=== PATIENT | male | born 1960 | race African-American/Black ===

== ENCOUNTER 2023-12-10 13:06 | Outpatient (AMB) | payer BC, SELFPAY ==
--- NOTE | 2023-12-10 13:14 | A.OFFPC_ITS ---
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 Accompanied by: Self / Same As Patient Allergies No Known Allergies Allergy (Verified 12/10/23 13:19) Tobacco use date assessed: 12/10/23 Dental Screening Did you have a dental visit in the last 12 months?: Yes Did you have a dental problem in the last 6 months where you did not have access to dental care?: No Was dental information given to patient?: Patient has dentist HPI HPI Comments History of Present Illness Details The patient a 63 year old male with a significant past medical history of back pain, polyarthralgia, diabetes, hypertension, TRAVIS presenting for follow up DM: On actos 30 daily, ozempic. fasting blood glucose 90-110 Previously intolerant to metformin CV: on losartan 100 mg daily. Denies any chest pain, shortness of breath, palpitations Musculoskeletal: +RF. Pending rheumatology consult. Neck and hand pain with improvement following glucose regulation. Right knee pain. Had ultrasound lower leg swelling-showed ruptured bakers cyst TRAVIS: needs sleep referral for management Believes last colonoscopy was 3 years ago at most. Says this was normal ROS CONSTITUTIONAL: Denies weight loss, fever and chills. HEENT: Denies changes in vision and hearing. RESPIRATORY: Denies SOB and cough. CV: Denies palpitations and CP GI: Denies abdominal pain, nausea, vomiting and diarrhea. : Denies dysuria and urinary frequency. MSK: Denies new myalgia and joint pain. SKIN: Denies rash and pruritus. NEUROLOGICAL: Denies headache PSYCHIATRIC: Denies recent changes in mood. PHYSICAL EXAM: GENERAL: Alert and oriented x 3. NAD EYES: EOMI. Anicteric. HENT: Moist mucous membranes. No scleral icterus. No cervical lymphadenopathy. LUNGS: Clear to auscultation bilaterally. CARDIOVASCULAR: Regular rate and rhythm. No murmur. No JVD. ABDOMEN: Soft, non-tender +bs EXTREMITIES: No edema. Non-tender. SKIN: No rashes or lesions. Warm. NEUROLOGIC: No focal neurological deficits. CN II-XII grossly intact PSYCHIATRIC: Cooperative. Appropriate mood and affect [facility] Social History (Updated 12/10/23 @ 13:24 by Rosina Vines [facility]) Household Members: None Housing: House 75 years or older and lives alone: No Patient Tobacco Use Status: Never used Tobacco e-Cigarette/Vaping Use: Never Used service: Yes Current occupational status: employed Current occupation: [employer] Cognitive needs: No Hearing needs: No Vision needs: No Questionnaire PHQ-9 Over the last 2 weeks, how often have you been bothered by any of the following problems? 1. Little interest or pleasure in doing things: not at all 2. Feeling down, depressed, or hopeless: several days 3. Trouble falling or staying asleep, or sleeping too much: not at all 4. Feeling tired or having little energy: not at all 5. Poor appetite or overeating: not at all 6. Feeling bad about yourself - or that you are a failure or have let yourself or your family down: not at all 7. Trouble concentrating on things, such as reading the newspaper or watching television: not at all 8. Moving or speaking so slowly that other people could have noticed. Or the opposite - being so fidgety or restless that you have been moving around a lot more than usual: not at all 9. Thoughts that you would be better off or of hurting yourself in some way: not at all Total score: 1 Depression Screening Interpretation: Negative Depression Screening Done: Yes 08916 - PHQ-9 Billing: Yes Source: Developed by Drs. Herson Rutledge, Leanna Valencia, Modesto Frederick and colleagues, with an educational jayesh from [employer]. Thrive Questionnaire Date Thrive assessed: 12/10/23 I am a: Patient What is your living situation today?: I have a steady place to live Within the past 12 months, did the food you bought not last and you didn't have the money to get more?: Never true Within the past 12 months, did you worry whether your food would run out before you got money to buy more?: Never true Do you have trouble paying for medicines?: No Do you have trouble getting transportation to medical appointments?: No Do you have trouble paying your heating and electricity bill?: No Do you have trouble taking care of your child, family member or friend?: No Do you have trouble with day-to-day activities such as bathing, preparing meals, shopping, managing finances, etc.?: No Are you currently unemployed and looking for a job?: No Are you interested in more education?: No Please select the resources that you would like help with: None Currently or been in a relationship where the following occur: No concerns reported THRIVE Score: 0 AUDIT C Alcohol Use Questionnaire (AUDIT-C) 1. How often do you have a drink containing alcohol?: Never 3. How often do you have six or more drinks on one occasion?: Never Total Score: 0 MARC-7 AMB Questionnaire MARC-7 Date MARC - 7 assessed: 12/10/23 Feeling nervous, anxious, or on edge: 1 = Several days Not being able to stop or control worryin = Not at all Worrying too much about different things: 1 = Several days Trouble relaxin = Not at all Being so restless that it is hard to sit still: 0 = Not at all Becoming easily annoyed or irritable: 1 = Several days Feeling afraid as if something awful might happen: 0 = Not at all Total MARC-7 score (0-4 normal; 5-9 mild; 10-14 moderate; 15-21 severe): 3 Source: Developed by Drs. Herson Rutledge, Leanna Valencia, Modesto Frederick and colleagues, with an educational jayesh from [employer]. MARC-7 Assessment Billing MARC-7 Assessment Tool: MARC-7 Assessment 76951 Physical exam (Primary Care) Vital Signs: Last Vital Signs Pulse 76 12/10/23 13:16 Resp 13 12/10/23 13:16 BP 122/66 12/10/23 13:16 Pulse Ox 99 12/10/23 13:16 Oxygen Delivery Method Room Air 12/10/23 13:16 BMI result Body Mass Index 33.2 Tobacco/Smoking Status: Tobacco use Status Tobacco use date assessed 12/10/23 12/10/23 13:23 Patient Tobacco Use Status Never used Tobacco 12/10/23 13:24 e-Cigarette/Vaping Use Never Used 12/10/23 13:24 PHQ-9: PHQ-9 Score PHQ-9: Total score 1 12/15/23 11:07 Depression Screening Interpretation: Negative Thrive Assessment: Date of Thrive Assessment Date Thrive assessed 12/10/23 12/10/23 13:26 Currently or been in a relationship where the following occur: No concerns reported Assessment and Plan Assessment & Plan (1) Diabetes mellitus: Code(s): E11.9 - Type 2 diabetes mellitus without complications Qualifiers: Diabetes mellitus complication status: with other specified complication Diabetes mellitus intermodal dispatcher insulin use: without snf use Diabetes mellitus type: type 2 Qualified Code(s): E11.69 - Type 2 diabetes mellitus with other specified complication Plan: Check lab. continue routine follow up. annual eye exam (2) Hypertension: Code(s): I10 - Essential (primary) hypertension Qualifiers: Hypertension type: primary hypertension Qualified Code(s): I10 - Essential (primary) hypertension (3) History of DVT (deep vein thrombosis): Code(s): Z86.718 - Personal history of other venous thrombosis and embolism (4) Sleep apnea: Code(s): G47.30 - Sleep apnea, unspecified Qualifiers: Sleep apnea type: obstructive Qualified Code(s): G47.33 - Obstructive sleep apnea (adult) (pediatric) Orders: Orders Comprehensive Met. Panel 3 Months - Type 2 diabetes mellitus with other specified complication, I10 - Essential (primary) hypertension, Z86.718 - Personal history of other venous thrombosis and embolism Lipid Panel 3 Months - Type 2 diabetes mellitus with other specified complication, I10 - Essential (primary) hypertension, Z86.718 - Personal history of other venous thrombosis and embolism RT home sleep study 12/10/23 G47.30 - Sleep apnea, unspecified AMB Hemoglobin (HGB) 12/10/23 - Type 2 diabetes mellitus with other specified complication, Z13.9 - Encounter for screening, unspecified Complete Blood Count Auto Diff 3 Months - Type 2 diabetes mellitus with other specified complication, I10 - Essential (primary) hypertension, Z86.718 - Personal history of other venous thrombosis and embolism Hemoglobin A1c 3 Months - Type 2 diabetes mellitus with other specified complication, I10 - Essential (primary) hypertension, Z86.718 - Personal history of other venous thrombosis and embolism Referrals Sleep Medicine Referral G47.30 - Sleep apnea, unspecified Coding Level of Care Code Est Pt Level 5 (46200) Diagnoses Type 2 diabetes mellitus with other specified complication, without long-term current use of insulin E11.69 Diabetes mellitus complication status: with other specified complication Diabetes mellitus intermodal dispatcher insulin use: without snf use Diabetes mellitus type: type 2 Primary hypertension I10 Hypertension type: primary hypertension History of DVT (deep vein thrombosis) Z86.718 Obstructive sleep apnea syndrome G47.33 Sleep apnea type: obstructive Additional Codes MARC-7 Assessment Billing - MARC-7 Assessment Tool: MARC-7 Assessment 51101 ([id number])
[2023-12-10 13:16] VITALS: BP 122/66; PULSE 76; RESP 13; O2SAT 99; BMI 33.2
== END 2023-12-10 14:04 | disposition home or self-care (01) ==
PROVIDERS: PCP Internal Medicine; Visit Provider Internal Medicine
DX: E11.69 Type 2 diabetes mellitus with other specified complication (principal); I10 Essential (primary) hypertension; Z86.718 Personal history of other venous thrombosis and embolism; G47.33 Obstructive sleep apnea (adult) (pediatric)
CPT/HCPCS: 83036; 99214

== ENCOUNTER → 2023-12-27 14:29 | Outpatient (BNVA) | payer SELFPAY | PROVIDERS: PCP Internal Medicine; Visit Provider Physician Assistant | DX: Z02.79 Encounter for issue of other medical certificate (principal) ==

== ENCOUNTER → 2024-04-10 12:57 | Outpatient (BNVA) | payer SELFPAY | PROVIDERS: PCP Internal Medicine; Visit Provider Registered Nurse | DX: Z02.79 Encounter for issue of other medical certificate (principal) ==

== ENCOUNTER 2024-04-28 11:01 | Outpatient (AMB) | payer BC, SELFPAY ==
--- NOTE | 2024-04-28 11:19 | MHC.PC.OV ---
Vital Signs 04/28/24 11:21 Height 5 ft 11 in Weight 246 lb BMI 34.3 BP 110/76 Blood Pressure Location Rt brachial Position Sitting Pulse 75 Pulse Source Pulse Oximeter Pulse Oximetry (%) 97 Oxygen Delivery Method Room Air Intake Visit Reasons: Rsched from 04/21 DM Follow Up Intake Note: Follow up diabetes. Did not get lab work done. Story Reader Required: No Allergies No Known Allergies Allergy (Verified 04/28/24 11:20) Tobacco use date assessed: 04/28/24 HPI HPI Comments History of Present Illness Details The patient a 63 year old male with a significant past medical history of back pain, polyarthralgia, diabetes, hypertension, TRAVIS presenting for follow up DM: On actos 30 daily, ozempic. A1C today 5.7%. fasting blood glucose 90-110 Previously intolerant to metformin. Has some mild neuropathy in bilateral feet. Has been having left proximal heel pad pain, especially in the morning. CV: on losartan 100 mg daily. Denies any chest pain, shortness of breath, palpitations Musculoskeletal: +RF. Believes he went to rheumatology thereafter. Neck and hand pain with improvement following glucose regulation. Right knee pain. Had ultrasound lower leg swelling-showed ruptured bakers cyst Believes last colonoscopy was 3 years ago at most. Says this was normal ROS see HPI PHYSICAL EXAM: GENERAL: Alert and oriented x 3. NAD EYES: EOMI. Anicteric. HENT: Moist mucous membranes. No scleral icterus. No cervical lymphadenopathy. LUNGS: Clear to auscultation bilaterally. CARDIOVASCULAR: Regular rate and rhythm. No murmur. No JVD. ABDOMEN: Soft, non-tender +bs EXTREMITIES: No edema. Non-tender. SKIN: No rashes or lesions. Warm. NEUROLOGIC: No focal neurological deficits. CN II-XII grossly intact PSYCHIATRIC: Cooperative. Appropriate mood and affect [facility] Social History (Updated 12/10/23 @ 13:24 by Rosina Vines [facility]) Household Members: None Housing: House 75 years or older and lives alone: No Patient Tobacco Use Status: Never used Tobacco e-Cigarette/Vaping Use: Never Used service: Yes Current occupational status: employed Current occupation: [employer] Cognitive needs: No Hearing needs: No Vision needs: No Questionnaire PHQ-9 Over the last 2 weeks, how often have you been bothered by any of the following problems? 1. Little interest or pleasure in doing things: not at all 2. Feeling down, depressed, or hopeless: not at all 3. Trouble falling or staying asleep, or sleeping too much: not at all 4. Feeling tired or having little energy: not at all 5. Poor appetite or overeating: not at all 6. Feeling bad about yourself - or that you are a failure or have let yourself or your family down: not at all 7. Trouble concentrating on things, such as reading the newspaper or watching television: not at all 8. Moving or speaking so slowly that other people could have noticed. Or the opposite - being so fidgety or restless that you have been moving around a lot more than usual: not at all 9. Thoughts that you would be better off or of hurting yourself in some way: not at all Total score: 0 Depression Screening Interpretation: Negative Depression Screening Done: Yes 55929 - PHQ-9 Billing: Yes Source: Developed by Drs. Herson Rutledge, Leanna Valencia, Modesto Frederick and colleagues, with an educational jayesh from [employer]. Thrive Questionnaire Date Thrive assessed: 04/14/24 I am a: Patient What is your living situation today?: I have a steady place to live Within the past 12 months, did the food you bought not last and you didn't have the money to get more?: Never true Within the past 12 months, did you worry whether your food would run out before you got money to buy more?: Never true Do you have trouble paying for medicines?: No Do you have trouble getting transportation to medical appointments?: No Do you have trouble paying your heating and electricity bill?: No Do you have trouble taking care of your child, family member or friend?: No Do you have trouble with day-to-day activities such as bathing, preparing meals, shopping, managing finances, etc.?: No Are you currently unemployed and looking for a job?: No Are you interested in more education?: No Please select the resources that you would like help with: None Currently or been in a relationship where the following occur: No concerns reported THRIVE Score: 0 MARC-7 AMB Questionnaire MARC-7 Date MARC - 7 assessed: 12/10/23 Source: Developed by Drs. Herson Rutledge, Leanna Valencia, Modesto Frederick and colleagues, with an educational jayesh from [employer]. Physical exam (Primary Care) Vital Signs: Last Vital Signs Pulse 75 04/28/24 11:21 BP 110/76 04/28/24 11:21 Pulse Ox 97 04/28/24 11:21 Oxygen Delivery Method Room Air 04/28/24 11:21 BMI result Body Mass Index 34.3 Tobacco/Smoking Status: Tobacco use Status Tobacco use date assessed 04/28/24 04/28/24 11:21 Patient Tobacco Use Status Never used Tobacco 04/28/24 11:21 e-Cigarette/Vaping Use Never Used 04/28/24 11:21 PHQ-9: PHQ-9 Score PHQ-9: Total score 0 04/28/24 11:21 Depression Screening Interpretation: Negative Thrive Assessment: Date of Thrive Assessment Date Thrive assessed 04/14/24 04/28/24 11:21 Currently or been in a relationship where the following occur: No concerns reported Coding Level of Care Code Est Pt Level 4 (17238) Diagnoses Type 2 diabetes mellitus with other specified complication, without long-term current use of insulin E11.69 Diabetes mellitus type: type 2 Diabetes mellitus senior living insulin use: without terminal supervisor use Diabetes mellitus complication status: with other specified complication Primary hypertension I10 Hypertension type: primary hypertension Pain of left heel M79.672 Additional Codes PHQ-9 - 70874 - PHQ-9 Billing: Yes ([id number]) Assessment & Plan Assessment & Plan (1) Diabetes mellitus: Code(s): E11.9 - Type 2 diabetes mellitus without complications Category: Medical Qualifiers: Diabetes mellitus type: type 2 Diabetes mellitus senior living insulin use: without senior living use Diabetes mellitus complication status: with other specified complication Qualified Code(s): E11.69 - Type 2 diabetes mellitus with other specified complication Plan: well controlled on current regimen Annual eye exams (2) Hypertension: Code(s): I10 - Essential (primary) hypertension Category: Medical Qualifiers: Hypertension type: primary hypertension Qualified Code(s): I10 - Essential (primary) hypertension Plan: controlled on current medication (3) Pain of left heel: Code(s): M79.672 - Pain in left foot Category: Medical Plan: Mild/mod at present. Discussed possible achilles tendinitis, arthritis or bone spurring. declines imaging and referral at present. He will trial voltaren cream Orders: Orders AMB Hemoglobin A1c Today E11.69 - Type 2 diabetes mellitus with other specified complication Medications: New diclofenac sodium 1% apply to single knee, ankle, foot; for foot includes sole/toes/top of foot 4 grams topical QID 100 grams 3RF
[2024-04-28 11:21] VITALS: BP 110/76; PULSE 75; O2SAT 97; BMI 34.3
== END 2024-04-28 11:46 | disposition home or self-care (01) ==
PROVIDERS: PCP Internal Medicine; Visit Provider Internal Medicine
DX: E11.69 Type 2 diabetes mellitus with other specified complication (principal); I10 Essential (primary) hypertension; M79.672 Pain in left foot

== ENCOUNTER → 2024-04-28 11:01 | Outpatient (BNVA) | payer BC, SELFPAY | PROVIDERS: PCP Internal Medicine; Visit Provider Internal Medicine | DX: E11.69 Type 2 diabetes mellitus with other specified complication (principal); I10 Essential (primary) hypertension; M79.672 Pain in left foot | CPT/HCPCS: 96127 ==

== ENCOUNTER 2024-11-10 12:52 | Outpatient (AMB) | payer OTHER, SELFPAY ==
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
[2024-11-10 13:26] VITALS: BP 116/64; PULSE 104; RESP 16; O2SAT 98; BMI 36.3
== END 2024-11-10 13:37 | disposition home or self-care (01) ==
PROVIDERS: PCP Internal Medicine; Visit Provider Internal Medicine
DX: S39.012D Strain of muscle, fascia and tendon of lower back, subsequent encounter (principal); V89.2XXD Person injured in unspecified motor-vehicle accident, traffic, subsequent encounter; E11.69 Type 2 diabetes mellitus with other specified complication

== ENCOUNTER 2024-11-10 13:49 | Outpatient (REF) | payer OTHER, SELFPAY ==
[2024-11-10 18:31] LABS: MANUAL DIFF FLAG NO
[2024-11-10 18:45] LABS: Basophils Percent Auto 0.6 % (0-2); Eosinophils Percent Auto 0.6 % (0-4); Hematocrit 44.8 % (42.0-52.0); Hemoglobin 14.5 g/dl (14.0-18.0); Imm Gran Abs Auto 0.01 X10*3/uL (0.00-0.03); Imm Gran Pct Auto 0.2 % (0.0-0.4); Lymphocytes Absolute Auto 0.9 X10*3/uL (1.2-4.9); Lymphocytes Percent Auto 17.3 % (20-40); Mean Corpuscular HGB Conc 32.4 g/dl (31.0-36.0); Mean Corpuscular Volume 92.8 fL (80.0-98.0); Mean Platelet Volume 11.6 fL (9.4-12.4); Monocytes Absolute Auto 0.4 X10*3/uL (0.1-1.2); Monocytes Percent Auto 7.2 % (2-11); Neutrophils Percent Auto 74.1 % (45-73); Platelet Count 202 X10*3/uL (160-400); Red Blood Count 4.83 X10*6/uL (4.60-5.80); Red Cell Distribution Width 13.2 % (11.0-16.0); White Blood Count 5.4 X10*3/uL (4.8-10.8)
[2024-11-10 18:52] LABS: Alanine Aminotransferase 26 U/L (0-40); Albumin Level 4.3 g/dL (3.5-5.0); Alkaline Phosphatase 80 U/L (39-117); Anion Gap 11 (12-20); Aspartate Amino Transferase 25 U/L (5-37); Bilirubin Total 0.5 mg/dL (0.0-1.0); Blood Urea Nitrogen 14 mg/dL (9-16); Calcium 9.4 mg/dL (8.4-10.2); Carbon Dioxide 27 mmol/L (22-29); Chloride 106 mmol/L (96-108); Cholesterol 183 mg/dL (<200); Estimated Glomerular Filt Rate > 60; Glucose Random 139 mg/dL (60-115); HDL Cholesterol 44 mg/dL (>40); LDL Cholesterol Calculated 110 mg/dL (<100); Potassium 4.2 mmol/L (3.3-5.1); Sodium 140 mmol/L (135-145); Total Protein 7.6 g/dL (6.5-8.0); Triglycerides 149 mg/dL (<150)
[2024-11-10 19:12] LABS: Prostate Specific Antigen 1.77 ng/mL (<0.05-4.0)
[2024-11-11 05:50] LABS: Estimated Average Glucose 128 mg/dL; Hemoglobin A1C 160.3823 umol/L; Hemoglobin A1c % 6.1 % (<6.0); Total Hemoglobin (HGBA1C) 3759.9286 umol/L
== END 2024-11-10 13:50 | disposition home or self-care (01) ==
LOC: HO.WFDLDS 13:49
PROVIDERS: Visit Provider Internal Medicine
DX: I10 Essential (primary) hypertension (principal); E11.69 Type 2 diabetes mellitus with other specified complication; S39.012D Strain of muscle, fascia and tendon of lower back, subsequent encounter; G47.33 Obstructive sleep apnea (adult) (pediatric); M62.830 Muscle spasm of back; V89.2XXD Person injured in unspecified motor-vehicle accident, traffic, subsequent encounter; Z12.5 Encounter for screening for malignant neoplasm of prostate; Z86.718 Personal history of other venous thrombosis and embolism
CPT/HCPCS: 36415; 80053; 80061; 83036; 84153; 85025; 96127

== ENCOUNTER 2024-11-12 10:12 | Outpatient (REF) | payer OTHER, SELFPAY ==
--- NOTE | ~2024-11-12 | US_ITS ---
EXAMINATION: US LOWER EXTREMITY VEINS LIMITED FOLLOW UP RIGHT HISTORY: M79.661 - Pain in right lower leg COMPARISON: There are no prior studies available for comparison. TECHNIQUE: Duplex and color Doppler sonographic examination of the deep venous system of the right lower extremity was performed. FINDINGS: The common femoral, superficial femoral, and popliteal veins are patent demonstrating normal compressibility, spontaneous flow, and augmentation. There is a normal color and spectral Doppler waveform appearance of the visualized deep venous system above the knee. The posterior tibial and peroneal veins are patent. US/US venous duplex LE RT IMPRESSION: No evidence of acute DVT in the right lower extremity. Electronically signed by: Herson Ohara MD 11/12/2024 12:10 PM EDT
== END 2024-11-12 10:13 | disposition home or self-care (01) ==
LOC: HO.HMGCX 10:12
PROVIDERS: PCP Internal Medicine; Visit Provider Internal Medicine
DX: M79.661 Pain in right lower leg (principal); Z86.718 Personal history of other venous thrombosis and embolism
CPT/HCPCS: 93971

== ENCOUNTER → 2024-11-12 10:14 | Outpatient (BNV) | payer OTHER, SELFPAY | PROVIDERS: PCP Internal Medicine; Visit Provider Radiology Diagnostic Radiology | DX: M79.661 Pain in right lower leg (principal) | CPT/HCPCS: 93971 ==

== ENCOUNTER 2025-02-02 10:43 | Outpatient (AMB) | payer BC, SELFPAY ==
--- NOTE | 2025-02-02 10:46 | MHC.PC.OV ---
Vital Signs 02/02/25 10:55 Height 5 ft 11 in Weight 258 lb BMI 36.0 BP 139/68 Blood Pressure Location Lt brachial Position Sitting Respiration 16 Pulse 98 Pulse Source Pulse Oximeter Temp 98.3 F Temp Source Oral Pulse Oximetry (%) 98 Oxygen Delivery Method Room Air Intake Visit Reasons: rash Intake Note: patient here c/o Rash on right lower side since last . 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 Allergies No Known Allergies Allergy (Verified 02/02/25 10:55) Medication List - Last Reconciled 02/02/25 by Lashay Lee CNP cyclobenzaprine 10 mg PO BEDTIME PRN losartan 100 mg PO DAILY pioglitazone 30 mg PO DAILY Tobacco use date assessed: 02/02/25 Dental Screening Dental Screen Date: 02/02/25 Did you have a dental visit in the last 12 months?: No Did you have a dental problem in the last 6 months where you did not have access to dental care?: No Was dental information given to patient?: No HPI HPI Comments History of Present Illness Details 64-year-old male presents with complaints of a rash to his right lower abdomen since last Saturday. The rash started after he returned from vacation in [place]. The rash was raised like hives and very itchy but is now slightly red and itches intermittently. He has been using Benadryl cream for itching. He recalls eating fish for the first time and being in a pool while on vacation. He denies blisters. He denies associated fever, chills, body aches, fatigue. [facility] Social History (Updated 12/10/23 @ 13:24 by Rosina Vines [facility]) Household Members: None Housing: House 75 years or older and lives alone: No Patient Tobacco Use Status: Never used Tobacco e-Cigarette/Vaping Use: Never Used service: Yes Current occupational status: employed Current occupation: [employer] Cognitive needs: No Hearing needs: No Vision needs: No Questionnaire Thrive Questionnaire Date Thrive assessed: 11/03/24 I am a: Patient What is your living situation today?: I have a steady place to live Within the past 12 months, did the food you bought not last and you didn't have the money to get more?: Never true Within the past 12 months, did you worry whether your food would run out before you got money to buy more?: Never true Do you have trouble paying for medicines?: No Do you have trouble getting transportation to medical appointments?: No Do you have trouble paying your heating and electricity bill?: No Do you have trouble taking care of your child, family member or friend?: No Do you have trouble with day-to-day activities such as bathing, preparing meals, shopping, managing finances, etc.?: No Are you currently unemployed and looking for a job?: No Are you interested in more education?: No Please select the resources that you would like help with: None Currently or been in a relationship where the following occur: No concerns reported THRIVE Score: 0 MARC-7 AMB Questionnaire MARC-7 Date MARC - 7 assessed: 12/10/23 Source: Developed by Drs. Herson Rutledge, Leanna Valencia, Modesto Frederick and colleagues, with an educational jayesh from [employer]. Review of Systems Const Details: Const Denies chills, Denies fatigue, Denies fever(s), Denies headache(s) and Denies weakness ENT Denies dizziness and Denies headache(s) Card Denies chest pain, Denies lightheadedness, Denies dyspnea and Denies other (Palpitations) Resp Denies cough, Denies dyspnea, Denies wheezing and Denies other ( shortness of breath) GI Denies abdominal pain, Denies melena, Denies hematochezia, Denies change in bowel habits, Denies dyspepsia and Denies nausea Denies hematuria and Denies dysuria Musc Denies abnormal gait, Denies myalgias, Denies arthralgias, Denies numbness and Denies tingling Skin/Breast Reports as per HPI Neuro Denies abnormal gait, Denies dizziness, Denies headache(s), Denies memory loss, Denies numbness, Denies Sensory deficit (Neuro), Denies tingling and Denies weakness Psych Denies anxiety, Denies depression, Denies memory loss Endo Denies cold intolerance, Denies fatigue, Denies heat intolerance, Denies polydipsia and Denies polyuria Aller/Immun Denies wheezing Physical exam (Primary Care) Tobacco/Smoking Status: Tobacco use Status Tobacco use date assessed 02/02/25 02/02/25 10:54 Patient Tobacco Use Status Never used Tobacco 02/02/25 10:48 e-Cigarette/Vaping Use Never Used 02/02/25 10:48 Thrive Assessment: Date of Thrive Assessment Date Thrive assessed 11/03/24 02/02/25 10:48 Currently or been in a relationship where the following occur: No concerns reported Const Other: General: no acute distress and well developed Nutritional Appearance: well nourished Orientation/consciousness: patient oriented x3 HENMT Head: Yes normocephalic and Yes atraumatic Eyes General: appearance normal, both eyes and all related structures Pupils: Equal, round and reactive pupils present EOM: EOMs intact bilaterally Resp Effort & Inspection: normal respiratory effort Auscultation: clear to auscultation bilaterally Cardio Rate: regular rate Rhythm: regular rhythm Heart sounds: S1 normal heart sound present, S2 normal heart sound present, no gallops, no murmurs and no rubs GI Palpation (GI): No Abdominal aortic bruit present, Soft to palpation, nontender, No hepatosplenomegaly present and No Rebound tenderness present Auscultation: normal bowel sounds General: Yes no CVA tenderness Back/Spine/Pelvis Back: no CVA tenderness Cervical Spine: cervical ROM normal and No Cervical spine tenderness Thoracic/Lumbar Spine: thoraco-lumbar ROM normal, No pain with thoraco-lumbar ROM, No thoracic spinal tenderness and No lumbar spinal tenderness Extrem General: Yes normal to inspection, No edema and No calf tenderness Skin General: warm and dry. Normal skin color. Normal skin turgor Lesions: no lesions Rashes: Slightly red, flat rash with some peeling noted to large area of the right lower abdomen; no blister or overt infection Trauma: no lacerations or abrasions Wounds: no wounds Nails: normal Neuro General: patient oriented x3, gait normal and no focal neuro deficit Cranial nerves: Yes Equal, round and reactive pupils present Cognition (Neuro): normal cognition Gait exam (Neuro): Normal gait present Sensory Exam: No Sensory deficit (Neuro) Psych Appearance: grossly normal Affect: normal affect Attitude: cooperative Thought process: Normal thought process present Coding Level of Care Code New Pt Level 2 (07639) Diagnoses Rash R21 Assessment & Plan Assessment & Plan (1) Rash: Code(s): R21 - Rash and other nonspecific skin eruption Category: Medical Plan: Slightly red, flat rash with some peeling noted to large area of the right lower abdomen; no blister or overt infection. Likely an allergic response/contact dermatitis but clearing up. May use hydrocortisone cream as needed for itching. Follow-up with worsening or new symptoms. Verbalized understanding and agreed with the plan.
[2025-02-02 10:55] VITALS: BP 139/68; PULSE 98; RESP 16; TEMP 36.8; O2SAT 98; BMI 36.0
== END 2025-02-02 11:13 | disposition home or self-care (01) ==
LOC: HO.HMCFM 10:44
PROVIDERS: PCP Internal Medicine; Visit Provider Nurse Practitioner Family
DX: R21 Rash and other nonspecific skin eruption (principal)

== ENCOUNTER 2025-02-26 09:16 | Outpatient (AMB) | payer BC, SELFPAY ==
--- NOTE | 2025-02-26 09:32 | MHC.PC.OV ---
Vital Signs 02/26/25 09:36 Height 5 ft 11 in Weight 249 lb 4 oz BMI 34.8 BP 100/62 Blood Pressure Location Rt brachial Position Sitting Respiration 16 Pulse 67 Pulse Source Pulse Oximeter Temp 98.0 F Temp Source Temporal Artery Scan Pulse Oximetry (%) 98 Oxygen Delivery Method Room Air Intake Visit Reasons: rash/referral batch analyst Intake Note: Andrew presents in the office today for a rash and a referral to the batch analyst. Would like to discuss weight management. Allergies No Known Allergies Allergy (Verified 02/26/25 09:35) Tobacco use date assessed: 02/26/25 Dental Screening Dental Screen Date: 02/26/25 Did you have a dental visit in the last 12 months?: No Did you have a dental problem in the last 6 months where you did not have access to dental care?: No Was dental information given to patient?: Patient declined HPI HPI Comments History of Present Illness Details The patient a 64 year old male with a significant past medical history of back pain, polyarthralgia, diabetes, hypertension, TRAVIS presenting for follow up Seen at the end of january by colleague for abdominal [facility] Though to be contact dermatitis. advised hydrocortisone application. patient notes improvement without resolution. Request allergy referral. Also notes some splitting and discolored lines of the fingernails that has been more noticeable over the past year DM: On actos 30 daily. Previously on ozempicswati says he had some nausea with the medications. Purchased compound moujaro which he tolerates very well but cannot afford. Previously intolerant to metformin. Has some mild neuropathy in bilateral feet. CV: on losartan 100 mg daily. Denies any chest pain, shortness of breath, palpitations Musculoskeletal: +RF. Believes he went to rheumatology thereafter. Neck and hand pain with improvement following glucose regulation. Right knee pain. Had ultrasound lower leg swelling-showed ruptured bakers cyst. Increased back pain recently. Uses naprosyn, flexeril with some relief. Believes last colonoscopy was 3 years ago at most. Says this was normal ROS see HPI PHYSICAL EXAM: GENERAL: Alert and oriented x 3. NAD EYES: EOMI. Anicteric. HENT: Moist mucous membranes. No scleral icterus. No cervical lymphadenopathy. LUNGS: Clear to auscultation bilaterally. CARDIOVASCULAR: Regular rate and rhythm. No murmur. No JVD. ABDOMEN: Soft, non-tender +bs EXTREMITIES: No edema. Non-tender. MSK: right thoracic paraspinal spasm SKIN: Patches of hyperpigmentation on right mid and lower abdomen NEUROLOGIC: No focal neurological deficits. CN II-XII grossly intact PSYCHIATRIC: Cooperative. Appropriate mood and affect [facility] Social History Household Members: None Housing: House 75 years or older and lives alone: No Alcohol intake: never Patient Tobacco Use Status: Never used Tobacco e-Cigarette/Vaping Use: Never Used Second Hand Smoke Exposure: No service: Yes Current occupational status: employed Current occupation: [employer] Cognitive needs: No Hearing needs: No Vision needs: No Questionnaire Thrive Questionnaire Date Thrive assessed: 11/03/24 I am a: Patient What is your living situation today?: I have a steady place to live Within the past 12 months, did the food you bought not last and you didn't have the money to get more?: Never true Within the past 12 months, did you worry whether your food would run out before you got money to buy more?: Never true Do you have trouble paying for medicines?: No Do you have trouble getting transportation to medical appointments?: No Do you have trouble paying your heating and electricity bill?: No Do you have trouble taking care of your child, family member or friend?: No Do you have trouble with day-to-day activities such as bathing, preparing meals, shopping, managing finances, etc.?: No Are you currently unemployed and looking for a job?: No Are you interested in more education?: No Please select the resources that you would like help with: None Currently or been in a relationship where the following occur: No concerns reported THRIVE Score: 0 MARC-7 AMB Questionnaire MARC-7 Date MARC - 7 assessed: 12/10/23 Source: Developed by Drs. Herson Rutledge, Leanna Valencia, Modesto Frederick and colleagues, with an educational jayesh from [employer]. Physical exam (Primary Care) Vital Signs: Last Vital Signs Temp 98.0 F 02/26/25 09:36 Pulse 67 02/26/25 09:36 Resp 16 02/26/25 09:36 BP 100/62 02/26/25 09:36 Pulse Ox 98 02/26/25 09:36 Oxygen Delivery Method Room Air 02/26/25 09:36 BMI result Body Mass Index 34.8 Tobacco/Smoking Status: Tobacco use Status Tobacco use date assessed 02/26/25 02/26/25 09:39 Patient Tobacco Use Status Never used Tobacco 02/26/25 09:36 e-Cigarette/Vaping Use Never Used 02/26/25 09:36 Thrive Assessment: Date of Thrive Assessment Date Thrive assessed 11/03/24 02/26/25 09:34 Currently or been in a relationship where the following occur: No concerns reported Coding Level of Care Code Est Pt Level 4 (86242) Diagnoses Rash R21 Nail changes L60.9 Type 2 diabetes mellitus with other specified complication, without long-term current use of insulin E11.69 Diabetes mellitus type: type 2 Diabetes mellitus [facility] insulin use: without [facility] use Diabetes mellitus complication status: with other specified complication Primary hypertension I10 Hypertension type: primary hypertension Assessment & Plan Assessment & Plan (1) Rash: Code(s): R21 - Rash and other nonspecific skin eruption Category: Medical (2) Nail changes: Code(s): L60.9 - Nail disorder, unspecified Category: Medical (3) Diabetes mellitus: Code(s): E11.9 - Type 2 diabetes mellitus without complications Category: Medical Qualifiers: Diabetes mellitus type: type 2 Diabetes mellitus [facility] insulin use: without manager private use Diabetes mellitus complication status: with other specified complication Qualified Code(s): E11.69 - Type 2 diabetes mellitus with other specified complication (4) Hypertension: Code(s): I10 - Essential (primary) hypertension Category: Medical Qualifiers: Hypertension type: primary hypertension Qualified Code(s): I10 - Essential (primary) hypertension Plan Rash-oral prednisone pulse. Given nail changes will also add short term antifungal. May need dermatology. allergy referral placed Patient would like to be on mounjaro-has tolerated this better than trulicity and ozempic. referral medical weight management placed. Will try again PA DM-due for labs which are ordered MSK-prednisone, trial meloxicam Orders: Orders IRON PROFILE Today L60.9 - Nail disorder, unspecified Rheumatoid Factor Today E11.69 - Type 2 diabetes mellitus with other specified complication, M54.50 - Low back pain, unspecified Lyme IgG/IgM w/reflex to WB Today E11.69 - Type 2 diabetes mellitus with other specified complication, M54.50 - Low back pain, unspecified Vitamin B12 and Folate Today L60.9 - Nail disorder, unspecified Vitamin B1 Today L60.9 - Nail disorder, unspecified Referrals Allergy & Immunology Referral E11.69 - Type 2 diabetes mellitus with other specified complication, G47.33 - Obstructive sleep apnea (adult) (pediatric) Medical Weight Management Referral R21 - Rash and other nonspecific skin eruption Medications: New prednisone 20 mg PO DAILY 10 tabs 0RF Mounjaro (tirzepatide) for 4 weeks 2.5 mg (0.5 mL) subcut QWEEK 2 mL 1RF NS E11.69 - Type 2 diabetes mellitus with other specified complication terbinafine HCl 250 mg PO DAILY 14 tabs 3RF meloxicam 15 mg PO DAILY 90 tabs 3RF
[2025-02-26 09:36] VITALS: BP 100/62; PULSE 67; RESP 16; TEMP 36.7; O2SAT 98; BMI 34.8
== END 2025-02-26 10:15 | disposition home or self-care (01) ==
LOC: HO.HMCFM 09:17
PROVIDERS: PCP Internal Medicine; Visit Provider Internal Medicine
DX: R21 Rash and other nonspecific skin eruption (principal); L60.9 Nail disorder, unspecified; E11.69 Type 2 diabetes mellitus with other specified complication; I10 Essential (primary) hypertension

== ENCOUNTER 2025-02-26 09:16 | Outpatient (REF) | payer BC, SELFPAY ==
[2025-02-26 14:41] LABS: MANUAL DIFF FLAG NO
[2025-02-26 14:50] LABS: Hematocrit 40.0 % (42.0-52.0); Hemoglobin 13.2 g/dl (14.0-18.0); Imm Gran Abs Auto 0.02 X10*3/uL (0.00-0.03); Imm Gran Pct Auto 0.5 % (0.0-0.4); Lymphocytes Absolute Auto 1.1 X10*3/uL (1.2-4.9); Mean Corpuscular HGB Conc 33.0 g/dl (31.0-36.0); Mean Corpuscular Hemoglobin 29.7 pg (27.0-33.0); Mean Corpuscular Volume 90.1 fL (80.0-98.0); NRBC Abs Auto 0.000 X10*3/uL (0.0-0.012); NRBC Pct Auto 0.0 /100WBC (0.0-0.2); Platelet Count 212 X10*3/uL (160-400); Red Blood Count 4.44 X10*6/uL (4.60-5.80); White Blood Count 3.9 X10*3/uL (4.8-10.8)
[2025-02-26 14:59] LABS: Hemoglobin A1C 150.6684 umol/L
[2025-02-26 15:08] LABS: Alanine Aminotransferase 21 U/L (0-40); Albumin Level 4.4 g/dL (3.5-5.0); Alkaline Phosphatase 67 U/L (39-117); Anion Gap 9 (12-20); Aspartate Amino Transferase 26 U/L (5-37); Blood Urea Nitrogen 15 mg/dL (9-16); Calcium 9.1 mg/dL (8.4-10.2); Carbon Dioxide 26 mmol/L (22-29); Chloride 107 mmol/L (96-108); Cholesterol 160 mg/dL (<200); Estimated Glomerular Filt Rate > 60; HDL Cholesterol 49 mg/dL (>40); Iron 65 mcg/dL (45-160); Percent Iron Saturation 22 % (15-50); Potassium 4.0 mmol/L (3.3-5.1); Sodium 138 mmol/L (135-145); Total Iron Binding Capacity 300 mcg/dL (228-428); Total Protein 7.2 g/dL (6.5-8.0); Triglycerides 57 mg/dL (<150); Unsaturated Iron Binding 235 ug/dL
[2025-02-26 15:39] LABS: Folate 7.1 ng/mL (> or = 4.0); Vitamin B12 338 pg/mL (200-900)
[2025-02-27 12:24] LABS: Lyme Abs Screen <0.90 index
== END 2025-02-26 09:17 | disposition home or self-care (01) ==
LOC: HO.WFDLDS 09:16
PROVIDERS: PCP Internal Medicine; Visit Provider Internal Medicine
DX: Z12.5 Encounter for screening for malignant neoplasm of prostate (principal); E11.69 Type 2 diabetes mellitus with other specified complication; R21 Rash and other nonspecific skin eruption; L60.9 Nail disorder, unspecified; I10 Essential (primary) hypertension; M54.50 Low back pain, unspecified; Z86.718 Personal history of other venous thrombosis and embolism
CPT/HCPCS: 36415; 80053; 80061; 82607; 82746; 83036; 83540; 84425; 85025; 86431; 86617; 86618

== ENCOUNTER 2025-05-31 09:57 | Outpatient (AMB) | payer BC, SELFPAY ==
--- NOTE | 2025-05-31 10:12 | MHC.PC.OV ---
Vital Signs 05/31/25 10:17 Height 5 ft 11 in Weight 254 lb 4 oz BMI 35.5 BP 120/64 Blood Pressure Location Rt brachial Position Sitting Respiration 16 Pulse 71 Pulse Source Pulse Oximeter Pulse Oximetry (%) 99 Oxygen Delivery Method Room Air Intake Visit Reasons: DM Intake Note: Diabetes follow up Procedure Writer Required: No Allergies No Known Allergies Allergy (Verified 05/31/25 10:16) Tobacco use date assessed: 02/26/25 Dental Screening Dental Screen Date: 02/26/25 HPI HPI Comments History of Present Illness Details The patient a 64 year old male with a significant past medical history of back pain, polyarthralgia, diabetes, hypertension, TRAVIS presenting for follow up Seen at the end of january by colleague for abdominal rash that [facility]. Though to be contact dermatitis. advised hydrocortisone application. patient notes improvement without resolution. Request allergy referral. Also notes some splitting and discolored lines of the fingernails that has been more noticeable over the past year DM: On actos 30 daily. Previously on ozempic, swati says he had some nausea with the medications. Purchased compound moujaro which he tolerates very well but cannot afford. Previously intolerant to metformin. Has some mild neuropathy in bilateral feet. CV: on losartan 100 mg daily. Denies any chest pain, shortness of breath, palpitations Musculoskeletal: +RF. Believes he went to rheumatology thereafter. Neck and hand pain with improvement following glucose regulation. Right knee pain. Had ultrasound lower leg swelling-showed ruptured bakers cyst. Increased back pain recently. Uses naprosyn, flexeril with some relief. Believes last colonoscopy was 3 years ago at most. Says this was normal ROS see HPI PHYSICAL EXAM: GENERAL: Alert and oriented x 3. NAD EYES: EOMI. Anicteric. HENT: Moist mucous membranes. No scleral icterus. No cervical lymphadenopathy. LUNGS: Clear to auscultation bilaterally. CARDIOVASCULAR: Regular rate and rhythm. No murmur. No JVD. ABDOMEN: Soft, non-tender +bs EXTREMITIES: No edema. Non-tender. MSK: right thoracic paraspinal spasm SKIN: Patches of hyperpigmentation on right mid and lower abdomen NEUROLOGIC: No focal neurological deficits. CN II-XII grossly intact PSYCHIATRIC: Cooperative. Appropriate mood and affect [facility] Surgical History (Updated 05/10/25 @ 11:27 by Shawanda Iyer CMA) Hx of colonoscopy Family History (Updated 05/10/25 @ 11:28 by Shawanda Iyer CMA) Mother Stroke Father No problems noted. Social History (Updated 05/10/25 @ 11:28 by Shawanda Iyer CMA) Household Members: None Housing: House 75 years or older and lives alone: No Alcohol intake: former Patient Tobacco Use Status: Former Tobacco user e-Cigarette/Vaping Use: Never Used Second Hand Smoke Exposure: No service: Yes Current occupational status: employed Current occupation: [employer] Cognitive needs: No Hearing needs: No Vision needs: No Questionnaire Thrive Questionnaire Date Thrive assessed: 11/03/24 I am a: Patient What is your living situation today?: I have a steady place to live Within the past 12 months, did the food you bought not last and you didn't have the money to get more?: Never true Within the past 12 months, did you worry whether your food would run out before you got money to buy more?: Never true Do you have trouble paying for medicines?: No Do you have trouble getting transportation to medical appointments?: No Do you have trouble paying your heating and electricity bill?: No Do you have trouble taking care of your child, family member or friend?: No Do you have trouble with day-to-day activities such as bathing, preparing meals, shopping, managing finances, etc.?: No Are you currently unemployed and looking for a job?: No Are you interested in more education?: No Currently or been in a relationship where the following occur: No concerns reported THRIVE Score: 0 MARC-7 AMB Questionnaire MARC-7 Date MARC - 7 assessed: 12/10/23 Source: Developed by Drs. Herson Rutledge, Leanna Valencia, Modesto Frederick and colleagues, with an educational jayesh from [employer]. Physical exam (Primary Care) Vital Signs: Last Vital Signs Pulse 71 05/31/25 10:17 Resp 16 05/31/25 10:17 BP 120/64 05/31/25 10:17 Pulse Ox 99 05/31/25 10:17 Oxygen Delivery Method Room Air 05/31/25 10:17 BMI result Body Mass Index 35.5 Tobacco/Smoking Status: Tobacco use Status Tobacco use date assessed 02/26/25 05/31/25 10:15 Patient Tobacco Use Status Former Tobacco user 05/31/25 10:15 e-Cigarette/Vaping Use Never Used 05/31/25 10:15 Thrive Assessment: Date of Thrive Assessment Date Thrive assessed 11/03/24 05/31/25 10:15 Currently or been in a relationship where the following occur: No concerns reported Results AMB Hemoglobin A1c AMB Hemoglobin A1c 6.0 % Last Edit by Valerie Andrew CMA on 05/31/25 10:28 Results Reviewed Results Reviewed: Laboratory Last Values Hgb A1c (Clinic) 6.0 % (4.0-6.0) 05/31/25 10:27 Coding Assessment & Plan Assessment & Plan Orders: Orders AMB Hemoglobin A1c Today E11.69 - Type 2 diabetes mellitus with other specified complication venous duplex LE LT Today M79.662 - Pain in left lower leg, Z86.718 - Personal history of other venous thrombosis and embolism
[2025-05-31 10:17] VITALS: BP 120/64; PULSE 71; RESP 16; O2SAT 99; BMI 35.5
--- OUTSIDE RECORDS SUMMARY | 2025-05-31 11:52 | XMS_ITS | Patient Health Record ---
Author Organization [facility] Address [address] [place] [address] Care Team Providers Care Repairer Welding Equipment Name Role Phone UZAIRKARIADRIEN QUINTANA Primary Care Provide [phone] Allergies No Known Allergies Reason For Referral No Information Medications Medication SIG (Take, Route, Frequency, Duration) Notes Start Date End Date Status Ibuprofen 200 MG Tablet 1 tab(s) orally every 6 hours Active Doxycycline Monohydrate 100 MG Tablet 1 tab(s) orally 2 times a day; Duration: 10 day(s) 12/23/2020 Not-Taking Eliquis 5 MG Tablet as directed orally 2 times a day; Duration: 90 day(s) Active Social History Social History Additional Details Category Social Info Options Details 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 Past year's travels: None alcohol use: no Quit 1989 drug use: no Hobbies/Exercise habits: Bowling , Bike Riding Coffee/Tea/Soda: no Marital Status single experience yes [employer] smokers in household no 1 pack a da y for 10 years.Quit 1989 Problems Problem Type SNOMED Code ICD Code Onset Dates Problem Status W/U Status Risk Notes Problem Rectal bleeding (42433479) Rectal bleeding (K62.5) Active confirmed Problem Abscess (57336168) Abscess (L02.91) Active confirmed Plan Of Treatment Future Test Test Name Order Date Lipid Panel (Non Fasting)(BRL) 1 Insurance Providers Payer Name Payer Address Payer Phone Subscriber Number Group Number Insured Name Patient Relationship to Insured Coverage Start Date Coverage End Date [employer] [address] [place] [address] [id number] BRANDO FLORIAN Self - patient is the insured Medical (General) History Surgical History Surgery Date(Month/Year)
--- OUTSIDE RECORDS SUMMARY | 2025-05-31 11:52 | XMS_ITS | Data Portability ---
Author Organization [facility], [facility] Address [address] [place] [address] Care Team Providers Care Chainstitch Pants Outseamer Name Role Phone REJI TSANG Primary Care Provider Assessment No assessment recorded. Plan of Treatment Reminders Order Date Submit Date Provider Last Modified By Organization Details Last Modified Time Details Appointments None recorded. Lab None recorded. Referral None recorded. Procedures None recorded. Surgeries None recorded. Imaging XR, knee, 4 or more view - ROOM 203, New Patient right knee pain [phone] [email or web address] [facility] Office, [address], [facility] [address], , [address], 4 13:56:17 Medication Orders None recorded. Patient TargetsNo targets recorded. Patient InstructionsNo instructions recorded. Reason for Referral None Reported. Medical Equipment None Reported. Medications Name Sig Start Date Stop Date Status Note LastModified by Organization Details LastModified Time losartan 50 mg tablet TAKE 1 TABLET BY MOUTH EVERY DAY active Not Available Not Available No t Available cyclobenzapr ine 10 mg tablet TAKE 1 TABLET BY MOUTH THREE TIMES A DAY NEEDED FOR SPASM active Not Available Not Available No t Available amlodipine 5 mg tablet TAKE 1 TABLET BY MOUTH EVERY DAY active Not Available Not Available No t Available metformin 1,000 mg tablet TAKE 1 TABLET BY MOUTH TWICE A DAY active Not Available Not Available No t Available pioglitazone 30 mg tablet TAKE 1 TABLET BY MOUTH EVERY DAY active Not Available Not Available No t Available losartan 100 mg tablet TAKE 1 TABLET BY MOUTH EVERY DAY active Not Available Not Available No t Available naproxen 500 mg tablet TAKE 1 TABLET BY MOUTH TWICE A DAY active Not Available Not Available No t Available cyclobenzapr ine 5 mg tablet TAKE 1 TABLET BY MOUTH 3 TIMES A DAY active Not Available Not Available Not Available pregabalin 150 mg capsule TAKE 1 CAPSULE BY MOUTH TWICE A DAY active Not Available Not Available No t Available OneTouch Verio test strips USE TO CHECK BLOOD GLUCOSE ONCE DAILY FASTING active Not Available Not Available No t Available Trulicity 0.75 mg/0.5 mL subcutaneous pen injector 0.5 ML SUBCUTANEOU S INJECTION EVERY WEEK,INSTR: ROTATE INJECTION SITES active Not Available Not Available No t Available OneTouch Verio Flex Meter DIRECTED active Not Available Not Available Not Available OneTouch Delica Plus Lancet 33 gauge USE TO CHECK BLOOD GLUCOSE DAILY active Not Available Not Available No t Available Ozempic 0.25 mg or 0.5 mg (2 mg/3 mL) subcutaneous pen injector active Not Available Not Available Not Available OneTouch UltraSoft 2 Lancet 30 gauge USE TO CHECK BLOOD GLUCOSE ONCE DAILY active Not Available Not Available N ot Available Vitals Date Recorded Body height Body mass index (BMI) Body weight Provider Name and Address Organization Details Last Updated DateTime 09/09/2023 180.34 cm 33.5 kg/m2 914505.17 g Vickey Robledo [place] - [facility] 09/09/2023 13:12:22 Social History None recorded. Functional Status None recorded. Mental Status None recorded. Family History Nothing Reported. Medical History No medical history recorded. Past Encounters Encounter ID Performer Location Encounter Start Date Encounter Closed Date Diagnosis/Indication Diagnosis SNOMED-CT Code Diagnosis ICD10 Code Diagnosis IMO Codes Diagnosis Note [id number] ESTHELA Reyna [address] [place] [address] 09/09/2023 12:56:25 10/02/2023 15:13:37 Pain of right knee joint [id number] 53402 M25.561 Health Concerns Section Related Observation LastModified by Organization Detai ls LastModified Time None Recorded Concern Status LastModified by Organization Details LastModified Time None Recorded Advance Directives Directive None Recorded Payers Insurance Date Sequence Insurance Name Policy Number Policy Jacinto Covered Member ID Jacinto Member ID Guarantor Name 10/04/2023 1 ERNST: [employer] 113 Andrew Clancy [id number] Andrew Clancy 10/04/2023 1 ERNST 113 Andrew Clancy [id number] Andrew Clancy Notes Date Note Type Note Provider Name and Address Organization Details Recorded Time 09/09/2023 text/html I am seeing the patient today under the supervision of Dr. Mireles who was available but who did not see the patient.HPI:Patient' s a 63-year-old male comes in the office with complaints of discomfort about his right knee. Right knee pain started about 2 months ago. He denies injury. His pain over the medial side of the knee. His knee pain has improved. He is back to the gym walking on the treadmill with some mild discomfort only. He occasionally takes Advil.Past family, medical, social history and review of systems has been reviewed, updated and is located in the patient s chart.Examination:T he patient is well appearing and in no apparent distress. Alert and oriented x3. Gait is symmetric. Minimal swelling of the right knee. Mild tenderness in the joint of the right knee. Range motion of right knee is just about full mild pain in flexion. Positive Annamarie's test right knee. Peripheral, vascular, lymphatic examination, skin, neurological, coordination, reflexes, sensation are within normal limits.X-rays ordered, obtained and reviewed at [facility] 4 views of the right knee reviewed demonstrate minimal degenerative change of the medial joint compartment and patellofemoral joint of the right knee.Impression:Dege nerative medial meniscus tear right kneePlan:I reviewed the x-rays and diagnosed with the patient. We discussed his options. His knee pain has improved. I believe he may have a medial meniscus tear causing some of his symptoms. We discussed treatment further the medial meniscus tear. We did discuss the risks, options, benefits and regards to an arthroscopic procedure for the medial meniscus tear. He was not interested in discussing surgery at this point. We discussed p.r.n. NSAIDs. We discussed an injection therapy for discomfort. We discussed his home exercise program. He wished to hold off on injections currently. He will continue with his home exercise program. If he still struggling in a month or 2 he may call for a cortisone injection in the right knee or an MRI scan of the right knee if he wishes to consider surgical intervention. He does wish to try a knee brace while he is active. I gave him a prescription for a knee brace. I also prescribed Naprosyn 500 mg twice a day. He will follow up as needed. Yariel Hickman PA-C [address], , [address], [facility] - [facility] 09/18/2023 09:06:00
== END 2025-05-31 12:45 | disposition home or self-care (01) ==
LOC: HO.HMCFM 09:58
PROVIDERS: PCP Internal Medicine; Visit Provider Internal Medicine
DX: E11.69 Type 2 diabetes mellitus with other specified complication (principal)

== ENCOUNTER → 2025-05-31 09:57 | Outpatient (BNVA) | payer BC, SELFPAY | PROVIDERS: PCP Internal Medicine; Visit Provider Internal Medicine | DX: E11.69 Type 2 diabetes mellitus with other specified complication (principal); I10 Essential (primary) hypertension; M79.662 Pain in left lower leg; Z86.718 Personal history of other venous thrombosis and embolism; Z79.84 Long term (current) use of oral hypoglycemic drugs; Z79.899 Other long term (current) drug therapy | CPT/HCPCS: 83036 ==

== ENCOUNTER 2025-06-01 10:46 | Outpatient (REF) | payer BC, SELFPAY ==
--- NOTE | ~2025-06-01 | US_ITS ---
EXAMINATION: US TRIPLEX LOWER EXTREMITY, LEFT CLINICAL INFORMATION: Pain left calf COMPARISON: Ultrasound 11/12/2024 TECHNIQUE: Color-flow triplex imaging with spectral analysis and compression Doppler were performed on the left lower extremity. FINDINGS: Respiratory variation, normal compression and augmented flow are noted throughout the left lower extremity. The visualized common femoral vein, superficial femoral vein, profunda femoral vein, popliteal vein and midcalf peroneal and posterior tibial venous segments show no evidence of deep venous thrombosis. Mildly complex Omalley's cyst measuring 1.8 x 0.7 x 1.7 US/US venous duplex LE LT IMPRESSION: No evidence of deep venous thrombosis involving the left lower extremity. Electronically signed by: Heath Montes MD 06/01/2025 11:29 AM OSBALDO
--- OUTSIDE RECORDS SUMMARY | 2025-06-01 12:09 | XMS_ITS | Patient Health Record ---
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 Past year's travels: None alcohol use: no Quit 1989 drug use: no Hobbies/Exercise habits: Bowling , Bike Riding Coffee/Tea/Soda: no Marital Status single experience yes [employer] smokers in household no 1 pack a da y for 10 years.Quit 1989 Problems Problem Type SNOMED Code ICD Code Onset Dates Problem Status W/U Status Risk Notes Problem Rectal bleeding (88414619) Rectal bleeding (K62.5) Active confirmed Problem Abscess (12820380) Abscess (L02.91) Active confirmed Plan Of Treatment Future Test Test Name Order Date Lipid Panel (Non Fasting)(BRL) 1 Insurance Providers Payer Name Payer Address Payer Phone Subscriber Number Group Number Insured Name Patient Relationship to Insured Coverage Start Date Coverage End Date [employer] [address] [place] [address] [phone] [id number] BRANDO FLORIAN Self - patient is the insured Medical (General) History Surgical History Surgery Date(Month/Year)
--- OUTSIDE RECORDS SUMMARY | 2025-06-01 12:09 | XMS_ITS | Data Portability ---
Author Organization [facility], [facility] Address [address] [place] [address] Care Team Providers Care Brand Marketing Specialist Name Role Phone REJI TSANG Primary Care Provider [phone] Assessment No assessment recorded. Plan of Treatment Reminders Order Date Submit Date Provider Last Modified By Organization Details Last Modified Time Details Appointments None recorded. Lab None recorded. Referral None recorded. Procedures None recorded. Surgeries None recorded. Imaging XR, knee, 4 or more view - ROOM 203, New Patient right knee pain 024 024 [email or web address] [facility] Office, [address], [place], [address], 4 13:56:17 Medication Orders None recorded. Patient [...] Updated DateTime 09/09/2023 180.34 cm 33.5 kg/m2 369969.17 g Vickey Robledo [place] - [facility] 09/09/2023 13:12:22 Social History None recorded. Functional Status None recorded. Mental Status None recorded. Family History Nothing Reported. Medical History No medical history recorded. Past Encounters Encounter ID Performer Location Encounter Start Date Encounter Closed Date Diagnosis/Indication Diagnosis SNOMED-CT Code Diagnosis ICD10 Code Diagnosis IMO Codes Diagnosis Note [id number] ESTHELA Reyna [address] [place] [address] 09/09/2023 12:56:25 10/02/2023 15:13:37 Pain of right knee joint 1348926519 51769 M25.561 Health Concerns Section Related Observation LastModified by Organization Detai ls LastModified Time None Recorded Concern Status LastModified by Organization Details LastModified Time None Recorded Advance Directives Directive None Recorded Payers Insurance Date Sequence Insurance Name Policy Number Policy Jacinto Covered Member ID Jacinto Member ID Guarantor Name 10/04/2023 1 ERNST: [employer] 113 Andrew Clancy [id number] Andrew Clancy 10/04/2023 1 ERNST 113 Andrew Clancy [id number] Andrew Clancy Notes Date Note Type Note [...] normal limits.X-rays ordered, obtained and reviewed at [facility] 4 views of the right knee reviewed [...] up as needed. Yariel Hickman PA-C [address], [place], [address], [facility] - [facility] 09/18/2023 09:06:00
== END 2025-06-01 10:47 | disposition home or self-care (01) ==
LOC: HO.US 10:46
PROVIDERS: Visit Provider Internal Medicine
DX: M79.662 Pain in left lower leg (principal); Z86.718 Personal history of other venous thrombosis and embolism
CPT/HCPCS: 93971

== ENCOUNTER → 2025-06-01 10:49 | Outpatient (BNV) | payer BC, SELFPAY | PROVIDERS: Visit Provider Radiology Diagnostic Ultrasound | DX: M79.662 Pain in left lower leg (principal) | CPT/HCPCS: 93971 ==